=== PATIENT | male | born 1990 | race Caucasian/White ===

== ENCOUNTER 2018-09-03 06:58 | Emergency (ER) | payer OTHER, SELFPAY ==
[2018-09-03 07:03] VITALS: BP 126/72; PULSE 72; RESP 18; TEMP 36.8; O2SAT 97; BMI 26.6
--- NOTE | 2018-09-03 07:14 | DI.RAD.S_ITS ---
PROCEDURE: XR SHOULDER RT MIN 2V INDICATIONS: Shoulder pain x 2 weeks, no known injury TECHNIQUE: 3 views of the shoulder were acquired. COMPARISON: None. FINDINGS: Bones: No fractures or dislocations. No suspicious bony lesions. Visualized ribs appear intact. Soft tissues: No suspicious soft tissue calcifications. IMPRESSION: No acute fracture or dislocation of the right shoulder. No radiographic findings to explain patient's reported right shoulder pain. Dictated by: Noah Bartholomew M.D. on 09/03/2018 at 10:16 Approved by: Noah Bartholomew M.D. on 09/03/2018 at 10:17
--- NOTE | 2018-09-03 07:31 | ED.EXTPRO ---
HPI - Extremity Problem General Chief complaint: Extremity Problem,Nontraumatic Stated complaint: pain in rt shoulder, limited restriction Time Seen by Provider: 09/03/18 07:22 Source: patient Mode of arrival: ambulatory Limitations: no limitations History of Present Illness HPI Narrative: This is a 28-year-old who comes the emergency of right shoulder pain. Patient states he has had symptoms for 2 or 3 weeks patient states that he noticed when was trying to do pushups that feels a little weaker on that side. He tries to fully hold his arm extended outwards and internally and externally rotate it feels like it wants to pop out place. Patient states that he does not any if he is sitting. Suspects it might be related to how he sleeps sort of sleeps on shoulder with stopper maker. Patient weakness lower arm, numbness, tingling or difficulty with conduit bender or movement patient states he has symptoms has not been taking any medication pain denies any medical history than he sometimes notes that he is pre hypertensive on the blood pressure machines the store. No prior surgeries. To medications. Patient does work as a security and compliance project manager he states that he has had scalpel in the past but does not remember having any injury to the shoulder itself. Related Data Home Medications Medication Instructions Recorded Confirmed No Known Home Medications 09/03/18 09/03/18 Allergies Allergy/AdvReac Type Severity Reaction Status Date / Time No Known Drug Allergies Allergy Verified 09/03/18 07:15 Review of Systems Review of Systems ROS Unobtainable: All systems reviewed & are unremarkable except as noted in HPI and below Constitutional Denies weakness ENT Ears, Nose, Mouth, and Throat: Denies neck pain Cardiovascular Denies chest pain and Denies dyspnea Respiratory Denies dyspnea Musculoskeletal Reports as per HPI, Denies back pain, Denies myalgias, Denies deformity, Reports arthralgias (right shoulder), Denies joint swelling, Reports limited range of motion, Denies muscle weakness, Denies neck pain, Denies numbness, Denies radiating pain into limb, Denies stiffness and Denies tingling Integumentary/Breasts Denies rash and Denies unusual bruising Neurologic Denies numbness, Denies sensory deficit, Denies tingling, Denies paresthesias and Denies weakness PFSH Medical History Bipolar disorder (Acute) PTSD (post-traumatic stress disorder) (Acute) Exam Narrative Exam Narrative: GENERAL: Alert and oriented x three, HEENT: Head normocephalic, atraumatic, EOMI, pupils reactive, face symmetric, moist mucous membranes NECK: Supple, full range of motion CARDIOVASCULAR: Regular rate and rhythm without murmurs, rubs or gallops. RESPIRATORY: Breath sounds equal bilaterally, no wheezes rales or rhonchi. ABDOMEN: Soft, nontender. Normoactive bowel sounds all 4 quadrants. No guarding or rebound, rigidity, no mass EXTREMITIES: Normal range of motion of right shoulder although less actively in comparison to left, non-tender to palpation, no tenderness over biceps tendon, No swelling, erythema, or warmth, no clubbing or edema. Neurovascularly intact. 2+ pulses bilateral upper extremities, 5/5 muscle strength of upper extremities, normal sensation. NEUROLOGICAL: Cranial nerves II through XII grossly intact. Moving all extremities SKIN: Warm, dry, no petechiae, no rashes or lesions. Initial Vital Signs Initial Vital Signs: Vital Signs Temperature 98.3 F 09/03/18 07:03 Pulse Rate 72 09/03/18 07:03 Respiratory Rate 18 09/03/18 07:03 Blood Pressure 126/72 09/03/18 07:03 Pulse Oximetry 97 09/03/18 07:03 Course Orders Ordered: ED Orders 09/03/18 07:14 XR shoulder RT min 2V Stat Vital Signs - 8 hr 09/03/18 07:03 Temperature 98.3 F Pulse Rate 72 Respiratory Rate 18 Blood Pressure 126/72 Pulse Oximetry 97 [facility] - Extremity (Nontraumatic) Imaging Data Right shoulder xray: Attestation: I personally reviewed and interpreted this imaging study as follows: My impression: no fx, normal alignment. MDM Narrative Medical decision making narrative: Discussed with the patient he does not have any bony changes, discussed possibly rotator cuff issues with feeling of weakness but pain is more posterior shoulder so makes it less likely, no signs/symptoms of neurologic or nerve involvement, biceps tendon non-tender with testing. [facility], possibly for PT vs referral to orthopedic surgery. Xray given to patient on disk. Discharge Plan Departure Patient Disposition: Home Clinical Impression: Pain in right shoulder Qualifiers: Chronicity: acute Qualified Code(s): M25.511 - Pain in right shoulder Instructions: DI for Shoulder Pain Activity Restrictions/Additional Instructions: Follow [facility] in the next 7-10 days if symptoms are not improving. Take the disk of your xray images with your appointment. Continue ibuprofen up to 600mg every 6 hours as needed. You may take up to 2400mg in a 24 hour period. You may take tylenol up to 1000mg every 8 hours as needed. Use ice to the affected area up to 20 minutes hourly. Return to the ER for loss of sensation, new weakness, inability to conduit bender or hold objects, if you are unable to lift or move your arm or other new or concerning symptoms. Prescriptions: No Action No Known Home Medications RF: 0
== END 2018-09-03 08:00 | disposition home or self-care (01) ==
PROVIDERS: Emergency Provider Emergency Medicine
DX: M25.511 Pain in right shoulder (principal)
CPT/HCPCS: 73030; 99282; 99283

== ENCOUNTER 2019-02-21 16:26 | Emergency (ER) | payer OTHER, SELFPAY ==
--- NOTE | 2019-02-21 16:31 | DI.RAD.S_ITS ---
PROCEDURE: XR SHOULDER RT MIN 2V INDICATIONS: fall with pain, question dislocation TECHNIQUE: 3 views of the shoulder were acquired. COMPARISON: [facility], CR, XR SHOULDER RT MIN 2V, 09/03/2018, 7:22. FINDINGS: Bones: No fractures or dislocations. No suspicious bony lesions. Visualized ribs appear intact. Soft tissues: No suspicious soft tissue calcifications. IMPRESSION: No fracture. No osseous lesion. If symptoms and/or clinical suspicion for pathology persists, further assessment with repeat radiographs (7-10 days) or advanced imaging (e.g. CT, MRI or bone scan) may be helpful. Dictated by: Salud Franks MD, PhD on 02/21/2019 at 17:01 Approved by: Salud Franks MD, PhD on 02/21/2019 at 17:02
[2019-02-21 16:36] VITALS: BP 122/81; PULSE 100; RESP 18; TEMP 36.7; O2SAT 97
--- NOTE | 2019-02-21 16:39 | ED.UPPEXIN ---
HPI - Extremity Injury (Upper) General Chief Complaint: Extremity Injury, Upper Stated Complaint: RIGHT ARM IS DISLOCATED Time Seen by Provider: 02/21/19 16:27 Source: patient and family Mode of arrival: ambulatory Limitations: no limitations History of Present Illness HPI narrative: 28-year-old former smoker with benign medical history presents with multiple family members, right upper extremity in a sling and a chief complaint of a shoulder dislocation. He states that last night while practicing martial arts moves by himself he lifted both arms up and away and felt a pop in his shoulder and he developed significant pain and decreased range of motion. She denies any numbness tingling or weakness. He does have a history of shoulder problems on this side. He denies any high speed or high velocity traumas. MD complaint: injury to: right Other injuries: none Handedness: right Place: home Severity: moderate Relieving factors: rest Related Data Home Medications Medication Instructions Recorded Confirmed No Known Home Medications 09/03/18 09/03/18 Allergies Allergy/AdvReac Type Severity Reaction Status Date / Time No Known Drug Allergies Allergy Verified 09/03/18 07:15 Review of Systems Constitutional Denies chills, Denies fever(s), Denies lethargy and Denies weakness Eyes Denies change in vision, Denies eye discharge, Denies irritation and Denies loss of vision ENT Ears, Nose, Mouth, and Throat: Denies change in voice, Denies neck pain and Denies sore throat Cardiovascular Denies chest pain, Denies irregular heart rhythm, Denies lightheadedness, Denies palpitations, Denies dyspnea, Denies dyspnea on exertion and Denies orthopnea Respiratory Denies cough, Denies dyspnea, Denies dyspnea on exertion and Denies wheezing Gastrointestinal Gastrointestinal: Denies abdominal pain, Denies change in bowel habits, Denies diarrhea, Denies nausea and Denies vomiting Genitourinary Denies hematuria, Denies flank pain, Denies urinary incontinence and Denies urinary urgency Musculoskeletal Reports limited range of motion and Denies neck pain Integumentary/Breasts Denies pruritus, Denies erythema, Denies rash and Denies wounds Neurologic Denies confusion, Denies loss of vision and Denies weakness Psychiatric Denies anxiety, Denies confusion, Denies depression, Denies homicidal ideation and Denies suicidal ideation Endocrine Denies palpitations Hematologic/Lymphatic Denies easy bruising Allergic/Immunologic Denies wheezing [facility] Medical History Bipolar disorder (Acute) PTSD (post-traumatic stress disorder) (Acute) Social History Smoking Status: Never smoker Social History Smoking Status: Never smoker Exam Narrative Exam Narrative: GEN: AOx3 and in mild distress, 28 year old male appears stated age EYES: Pupils are equal, round, and reactive to light and accommodation. Extraoccular muscles are intact bilaterally. There is no subconjunctival hemorrhage or exudate. CHEST: Lungs are clear to auscultation bilaterally and free of wheezes, rales, or rhonchi. Heart rate is regular rhythm, there are no murmurs, clicks, rubs, or gallops. There is no chest wall tenderness. ABD: Abdomen is soft and nontender. There is no guarding or rebound. Bowel sounds are normal in all 4 quadrants. There is no mass or organomegaly. EXT: Full painless ROM of all extremities with no loss of sensation or strength. SKIN: Warm, pink, and dry. No erythema or rash Initial Vital Signs Initial Vital Signs: Vital Signs Temperature 98.0 F 02/21/19 16:36 Pulse Rate 100 H 02/21/19 16:36 Respiratory Rate 18 02/21/19 16:36 Blood Pressure 122/81 02/21/19 16:36 Pulse Oximetry 97 02/21/19 16:36 Procedures Orthopedic Splinting/Casting Injury #1: Side: right Upper Extremity Injury Location: shoulder Upper Extremity Immobilizer: sling/shoulder immobilizer Post splinting neuro exam: intact Post splinting vascular exam: intact Placed by: Nursing Course Orders Ordered: ED Orders 02/21/19 16:31 XR shoulder RT min 2V Stat Vital Signs - 8 hr 02/21/19 16:36 Temperature 98.0 F Pulse Rate 100 H Respiratory Rate 18 Blood Pressure 122/81 Pulse Oximetry 97 MDM - Extremity Injury (Upper) Imaging Data Shoulder Xray: Radiologist's impression: [address] [address] XRay Report Signed Patient: Dimitry Soliman Cisco#: [id number] : 1990Acct:[id number] Age/Sex: 28 / MDate of Service: 02/21/19 Loc: ED Accession Number: [id number] Procedure: XR shoulder RT min 2V Ordering Provider: Dallas Joseph D.O. PROCEDURE: XR SHOULDER RT MIN 2V INDICATIONS: fall with pain, question dislocation TECHNIQUE: 3 views of the shoulder were acquired. COMPARISON: [facility], CR, XR SHOULDER RT MIN 2V, 09/03/2018, 7:22. FINDINGS: Bones: No fractures or dislocations. No suspicious bony lesions. Visualized ribs appear intact. Soft tissues: No suspicious soft tissue calcifications. IMPRESSION: No fracture. No osseous lesion. If symptoms and/or clinical suspicion for pathology persists, further assessment with repeat radiographs (7-10 days) or advanced imaging (e.g. CT, MRI or bone scan) may be helpful. Dictated by: Salud Franks MD, PhD on 02/21/2019 at 17:01 Approved by: Salud Franks MD, PhD on 02/21/2019 at 17:02 Discharge Plan Departure Patient Disposition: Home Clinical Impression: Right shoulder strain Qualifiers: Encounter type: initial encounter Qualified Code(s): S46.911A - Strain of unspecified muscle, fascia and tendon at shoulder and upper arm level, right arm, initial encounter Discharge Date/Time: 02/21/19 17:06 Interventions: ED Discharge Assessment Last Done: 02/21/19 17:05 Instructions: DI for Shoulder Sprain Activity Restrictions/Additional Instructions: *You have been diagnosed with [ acute right shoulder strain ] *What to do: *Take medications as directed: motrin for pain and swelling *Follow up with your primary care provider in 2-3 days, call for an appointment. Let them know you were seen in the Emergency Department and that we ask that you be seen in follow up *Return to ER if you should have any new, worsening or concerning symptoms Prescriptions: No Action No Known Home Medications RF: 0
== END 2019-02-21 17:06 | disposition home or self-care (01) ==
PROVIDERS: Emergency Provider Emergency Medicine
DX: S46.911A Strain of unspecified muscle, fascia and tendon at shoulder and upper arm level, right arm, initial encounter (principal); Y93.75 Activity, martial arts
CPT/HCPCS: 73030; 99282; 99283

== ENCOUNTER 2019-06-19 12:56 | Emergency (ER) | payer OTHER, SELFPAY ==
[2019-06-19 13:04] VITALS: BP 126/69; PULSE 84; RESP 16; TEMP 36.9; O2SAT 99
[2019-06-19] MEDS: CYCLOBENZAPRINE 10 MG TABLET PO (13:38)
[2019-06-19] MEDS: LIDOCAINE PATCH 1 EACH ADH..PATCH TOP (13:38)
--- NOTE | 2019-06-19 15:39 | ED_ITS ---
HPI - Neck Pain/Injury <ADAM Rea - Last Filed: 06/19/19 15:42> General Chief Complaint: Neck Pain/Injury Stated Complaint: Can't Move Head Time Seen by Provider: 06/19/19 13:16 Source: patient Mode of arrival: Ambulatory Limitations: no limitations History of Present Illness HPI Narrative: The patient is a 28-year-old male current some day smoker who denies pertinent medical history presents with a chief complaint of neck muscle spasm. He states he brought his girlfriend who is 29 weeks to the center to be checked today, with sitting there and felt all muscles in his neck tight not. Denies any trauma. He states he has had half a glass of green tea this morning and has not had any water to drink. He denies any fevers nausea vomiting or diarrhea. He took 400 mg of ibuprofen 1 hour prior to arrival. He denies any numbness tingling, incontinence bowel incontinence water saddle anesthesia. Related Data Previous Rx's Medication Instructions Recorded cyclobenzaprine 10 mg PO TID PRN #20 tab 06/19/19 Allergies Allergy/AdvReac Type Severity Reaction Status Date / Time No Known Drug Allergies Allergy Verified 09/03/18 07:15 Review of Systems <ADAM Rea - Last Filed: 06/19/19 15:42> Review of Systems Narrative: GENERAL: Denies chills, fatigue, malaise, fever, sweats. HEENT: Denies sinus pain, ear pain, sore throat, difficulty swallowing, dizziness. RESPIRATORY: Denies dyspnea, cough, wheezing, hemoptysis, sputum. CARDIOVASCULAR: Denies chest pain, palpitations, orthopnea, edema, GASTROINTESTINAL: Denies nausea, vomiting, abdominal pain, diarrhea, constipation, melena. : Denies dysuria, frequency, incontinence, hematuria, urinary retention. MUSCULOSKELETAL: See HPI SKIN: Denies rash, skin lesions, or other NEUROLOGIC: Denies weakness, headache, numbness, change in speech, confusion, seizures, incoordination. PSYCHIATRIC: No concerning psychosocial issues. 12 point review of systems is negative except for those stated above Patient History <ADAM Rea - Last Filed: 06/19/19 15:42> Medical History Bipolar disorder (Acute) PTSD (post-traumatic stress disorder) (Acute) Social History Smoking Status: Current some day smoker tobacco type: cigarettes alcohol intake frequency: 0-2 drinks per day Substance Use Type: does not use Exam <ADAM Rea - Last Filed: 06/19/19 15:42> Narrative Exam Narrative: GENERAL: This is a well-nourished, well-developed patient, in no acute distress HEAD: Atraumatic. Normocephalic. No temporal or scalp tenderness. EYES: Pupils equal round and reactive. Extraocular motions intact. No scleral icterus. No injection or drainage. ENT: Nose without bleeding, purulent drainage or septal hematoma. Throat without erythema, tonsillar hypertrophy or exudate. Uvula midline. Airway patent. NECK: Trachea midline. No JVD or lymphadenopathy. Supple, nontender, no meningeal signs. CARDIOVASCULAR: Regular rate and rhythm without murmurs, gallops, or rubs. RESPIRATORY: Clear to auscultation. Breath sounds equal bilaterally. No wheezes, rales, or rhonchi. No cough. No increased respiratory effort. No accessory muscle use. GASTROINTESTINAL: Abdomen soft, non-tender, nondistended. No hepato- splenomegaly, or palpable masses. No guarding. EXTREMITIES: No clubbing, cyanosis, or edema. No joint tenderness, effusion, or edema noted. BACK: Nontender without deformity or crepitance. No flank tenderness. No pain to palpation of midline C-spine. Pain to palpation bilateral paraspinal muscles of neck. NEURO: AOx3. SKIN: No rash or erythema. Initial Vital Signs Initial Vital Signs: Vital Signs Temperature 98.4 F 06/19/19 13:04 Pulse Rate 84 06/19/19 13:04 Respiratory Rate 16 06/19/19 13:04 Blood Pressure 126/69 06/19/19 13:04 Pulse Oximetry 99 06/19/19 13:04 <Justa Sharp MD - Last Filed: 06/19/19 15:53> Initial Vital Signs Initial Vital Signs: Vital Signs Temperature 98.4 F 06/19/19 13:04 Pulse Rate 84 06/19/19 13:04 Respiratory Rate 16 06/19/19 13:04 Blood Pressure 126/69 06/19/19 13:04 Pulse Oximetry 99 06/19/19 13:04 Scores <ADAM Rea - Last Filed: 06/19/19 15:42> Nexus Score for C-Spine Focal Neurologic deficit present: No Midline spinal tenderness present: No Altered level of conciousness present: No Intoxication present: No Distracting Injury Present: No Nexus Criteria for C-spine: 0 Course <ADAM Rea - Last Filed: 06/19/19 15:42> Orders Ordered: Discontinued Medications Cyclobenzaprine HCl (Flexeril) 10 mg PO NOW ONE Stop: 06/19/19 13:29 Last Admin: 06/19/19 13:38 Dose: 10 mg Documented by: PIPO Lidocaine (Lidoderm) 1 each TOP NOW ONE Stop: 06/19/19 13:29 Last Admin: 06/19/19 13:38 Dose: 1 each Documented by: PIPO Vital Signs Vital signs: Vital Signs - 8 hr 06/19/19 13:04 Temperature 98.4 F Pulse Rate 84 Respiratory Rate 16 Blood Pressure 126/69 Pulse Oximetry 99 <Justa Sharp MD - Last Filed: 06/19/19 15:53> Orders Ordered: Discontinued Medications Cyclobenzaprine HCl (Flexeril) 10 mg PO NOW ONE Stop: 06/19/19 13:29 Last Admin: 06/19/19 13:38 Dose: 10 mg Documented by: PIPO Lidocaine (Lidoderm) 1 each TOP NOW ONE Stop: 06/19/19 13:29 Last Admin: 06/19/19 13:38 Dose: 1 each Documented by: PIPO Vital Signs Vital signs: Vital Signs - 8 hr 06/19/19 13:04 Temperature 98.4 F Pulse Rate 84 Respiratory Rate 16 Blood Pressure 126/69 Pulse Oximetry 99 MDM - Neck Pain/Injury <ADAM Rea - Last Filed: 06/19/19 15:42> MDM Narrative Medical decision making narrative: The patient is a 28-year-old male who presents with a chief complaint of neck pain and spasm after he brought his girlfriend to the Center to be evaluated at 29 weeks . He states that he has not had any water today and he concerned he is dehydrated. He denies any systemic signs of illness, any acute neurological symptoms. He denies any incontinence of bowel, incontinence of bladder saddle anesthesia. He responded very well in the emergency department to lidocaine patch as well as cyclobenzaprine. I encouraged him to follow up with primary care provider in the next few days. Discussed at length coming back to the emergency department for any acute concerns. Patient has no questions or concerns upon discharge and states understanding of return precautions as well as follow-up care. Discharge Plan Departure Patient Disposition: Home Clinical Impression: Muscle spasm Discharge Date/Time: 06/19/19 14:18 Instructions: DI for Neck Pain, DI for Muscle Spasm Activity Restrictions/Additional Instructions: Please push fluids. I sent a prescription for a muscle relaxer to [facility] in [place]. Be aware this can be sedating. Do not take and drive. Please follow up with primary care provider. Please use [id number] medications as needed and able for comfort. Please come back to the emergency department for any acute concerns. Prescriptions: New cyclobenzaprine 10 mg tablet 10 mg PO TID PRN (Reason: muscle spasm) Qty: 20 RF: 0 Referrals: [facility] [Outside]
== END 2019-06-19 14:18 | disposition home or self-care (01) ==
PROVIDERS: Emergency Provider Nurse Practitioner Family
DX: M62.838 Other muscle spasm (principal)
CPT/HCPCS: 99282; 99283

== ENCOUNTER 2019-06-25 05:46 | Emergency (ER) | payer OTHER, SELFPAY ==
--- NOTE | 2019-06-25 05:46 | ED_ITS ---
HPI - Abdominal Pain General Chief Complaint: Abdominal Pain Stated Complaint: Abd Pain Time Seen by Provider: 06/25/19 05:46 Source: patient and EMS Mode of arrival: EMS Limitations: no limitations History of Present Illness HPI narrative: 29-year-old male nonsmoker with noncontributory medical history presents by EMS for evaluation of some episodic left-sided abdominal pain and a bulge around his belly button. He denies any significant pain but states when present is seems to be made worse by sneezing, coughing or standing. He denies nausea, vomiting or diarrhea. He states the pain around his umbilicus started with a forceful episode of sneezing coughing and he felt a pop and now has a bulge, he looked it up on the Internet and it states it is an umbilical hernia. He has been passing gas without difficulty. MD complaint: abdominal pain Onset (ago): week(s) Pain Consistency: intermittent Location: diffuse Severity: moderate Quality: cramping and aching Radiation: none Relieving factors: nothing Exacerbating factors: nothing Associated symptoms: denies other symptoms Related Data Previous Rx's Medication Instructions Recorded cyclobenzaprine 10 mg PO TID PRN #20 tab 06/19/19 Allergies Allergy/AdvReac Type Severity Reaction Status Date / Time No Known Drug Allergies Allergy Verified 09/03/18 07:15 Review of Systems Constitutional Constitutional: Denies chills, Denies fatigue, Denies fever(s), Denies frequent falls, Denies lethargy and Denies weakness Eyes Eyes: Denies change in vision, Denies eye discharge, Denies irritation and Denies loss of vision ENT Ears, Nose, Mouth, and Throat: Denies change in voice, Denies dizziness, Denies neck pain, Denies sore throat and Denies throat swelling Cardiovascular Cardiovascular: Denies chest pain, Denies irregular heart rhythm, Denies ligh theadedness, Denies palpitations, Denies dyspnea, Denies dyspnea on exertion and Denies orthopnea Respiratory Respiratory: Denies cough, Denies dyspnea, Denies dyspnea on exertion and Denies wheezing Gastrointestinal Gastrointestinal: Reports abdominal pain, Denies change in bowel habits, Denies diarrhea, Denies nausea and Denies vomiting Genitourinary Genitourinary: Denies hematuria, Denies flank pain, Denies urinary incontinence and Denies urinary urgency Musculoskeletal Musculoskeletal: Denies back pain, Denies muscle weakness, Denies neck pain, Denies numbness and Denies tingling Integumentary/Breasts Skin/Breast: Denies pruritus, Denies erythema, Denies rash and Denies wounds Neurologic Neurologic: Denies behavioral changes, Denies confusion, Denies dizziness, Denies frequent falls, Denies loss of vision, Denies numbness, Denies tingling and Denies weakness Psychiatric Psychiatric: Denies anxiety, Denies behavioral changes, Denies confusion, Denies depression, Denies homicidal ideation and Denies suicidal ideation Endocrine Endocrine: Denies fatigue, Denies flushing and Denies palpitations Hematologic/Lymphatic Hematologic/Lymphatic: Denies easy bruising Allergic/Immunologic Allergic/Immunologic: Denies urticaria, Denies throat swelling and Denies wheezing Patient History Medical History Bipolar disorder (Acute) PTSD (post-traumatic stress disorder) (Acute) Social History Smoking Status: Current some day smoker tobacco type: cigarettes alcohol intake frequency: 0-2 drinks per day Substance Use Type: does not use Exam Narrative Exam Narrative: GENERAL: [29] year old patient appears stated age. Well- nourished, well-developed patient, in mild distress. HEAD: Atraumatic. Normocephalic. EYES: Pupils equal round and reactive. Extraocular motions intact. No scleral icterus. No injection or drainage. ENT: Nose without bleeding, purulent drainage. Throat without erythema, tonsillar hypertrophy or exudate. Airway patent. NECK: Trachea midline. Non tender CARDIOVASCULAR: Regular rate and rhythm without murmurs, gallops, or rubs. RESPIRATORY: Clear to auscultation. Breath sounds equal bilaterally. No wheezes, rales, or rhonchi. GASTROINTESTINAL: Abdomen soft, non-tender, nondistended. Small umbilical hernia easily reducible : patient examined while standing. No inguinal hernia or testicular pain/swelling/erythema EXTREMITIES: No edema or joint tenderness. BACK: Nontender without deformity or crepitance. No flank tenderness. NEURO: AOx3. SKIN: No rash or erythema of visible areas Initial Vital Signs Initial Vital Signs: Vital Signs Temperature 98.4 F 06/25/19 06:00 Pulse Rate 88 06/25/19 06:00 Respiratory Rate 14 06/25/19 06:00 Blood Pressure 145/85 H 06/25/19 06:00 Pulse Oximetry 99 06/25/19 06:00 Course Orders Ordered: ED Orders 06/25/19 05:53 XR acute abdomen series Stat 06/25/19 06:08 Complete Blood Count AUTO DIFF Stat Comprehensive Metabolic Panel Stat Vital Signs Vital signs: Vital Signs - 8 hr 06/25/19 06:00 Temperature 98.4 F Pulse Rate 88 Respiratory Rate 14 Blood Pressure 145/85 H Pulse Oximetry 99 MDM - Abdominal Pain Lab Data Result diagrams: 06/25/19 06:08 06/25/19 06:08 Labs: Lab Results 06/25/19 06/25/19 Range/Units 06:08 06:08 WBC 4.5 (4.5-11.0) X10^3/uL RBC 5.33 (4.5-5.9) X10^6/uL Hgb 15.9 (13.5-17.5) g/dL Hct 46.8 (41-53) % MCV 87.8 (80-100) fL MCH 29.8 (26-34) PG MCHC 34.0 (30-36) % RDW 13.6 (11.6-14.8) % Plt Count 226 (150-400) X10^3/uL Neut % (Auto) 50.8 (50-75) % Lymph % (Auto) 33.8 (25-40) % [place] % (Auto) 12.8 (3-14) % Eos % (Auto) 2.1 (2-4) % Baso % (Auto) 0.5 (0-2) % Neut # (Auto) 2300 (4489-1040) /uL Lymph # (Auto) 1500 (6857-4889) /uL [place] # (Auto) 600 (0-900) /uL Eos # (Auto) 100 (0-450) /uL Baso # (Auto) 0 (0-100) /uL Sodium 139 (137-145) mmol/L Potassium 4.0 (3.4-5.1) mmol/L Chloride 103 (98-107) mmol/L Carbon Dioxide 25 (22-32) mmol/L BUN 16 (9-20) mg/dL Creatinine 1.00 (0.66-1.25) mg/dL Estimated GFR > 60.0 (>60) mL/min BUN/Creatinine Ratio 16.0 (6-22) Glucose 110 H (70-100) mg/dL Calcium 10.2 (8.4-10.2) mg/dL Total Bilirubin 1.4 H (0.2-1.3) mg/dL AST 27 (17-59) IU/L ALT 28 (<50) IU/L Alkaline Phosphatase 64 (38-126) U/L Total Protein 7.8 (6.3-8.2) g/dL Albumin 4.7 (3.5-5.0) g/dL Globulin 3.1 (1.7-4.1) g/dL Albumin/Globulin Ratio 1.5 (1.0-2.8) Discharge Plan Departure Patient Disposition: Home Clinical Impression: Hernia, umbilical Qualifiers: Obstruction and gangrene presence: without obstruction or gangrene Qualified Code(s): K42.9 - Umbilical hernia without obstruction or gangrene Abdominal pain Qualifiers: Abdominal location: generalized Qualified Code(s): R10.84 - Generalized abdominal pain Clinical Impression: (Ruled Out): Gastroenteritis Activity Restrictions/Additional Instructions: *You have been diagnosed with [reducible umbilical hernia. Please avoid lifting heavy objects. Stay well hydrated and avoid constipating foods such as dairy products. Please focus on foods high in fiber.] *What to do: *Take medications as directed *Follow up with your primary care provider in 2-3 days, call for an appointment. Let them know you were seen in the Emergency Department and that we ask that you be seen in follow up *Return to ER if you should have any new, worsening or concerning symptoms, such as [increasing pain, a hernia which does not reduce (pushed back in)] Prescriptions: No Action cyclobenzaprine 10 mg tablet 10 mg PO TID PRN (Reason: muscle spasm) Qty: 20 RF: 0 Referrals: Joel Duckworth MD [Physician] -
--- NOTE | 2019-06-25 05:53 | DI.RAD.S_ITS ---
PROCEDURE: XR ACUTE ABDOMEN SERIES INDICATIONS: Abdominal pain TECHNIQUE: One view chest and two views of the abdomen were acquired. COMPARISON: None. FINDINGS: Surgical changes and devices: None. Chest: Lungs are clear. Heart size is normal. No pleural effusions. No pneumoperitoneum. Abdomen: Bowel gas pattern is normal. No suspicious calcifications. Visualized solid organ contours appear normal. Bones: No suspicious bony lesions. IMPRESSION: 1. No acute cardiopulmonary findings. No acute intra-abdominal findings. Dictated by: Kelli Gutierres M.D. on 06/25/2019 at 7:05 Approved by: Kelli Gutierres M.D. on 06/25/2019 at 7:06
[2019-06-25 06:00] VITALS: BP 145/85; PULSE 88; RESP 14; TEMP 36.9; O2SAT 99; BMI 27.8
[2019-06-25 06:15] LABS: Add Manual Diff / Slide Review NO; Basophils Absolute Auto 0 /uL (0-100); Basophils Percent Auto 0.5 % (0-2); Eosinophils Absolute Auto 100 /uL (0-450); Eosinophils Percent Auto 2.1 % (2-4); Hematocrit 46.8 % (41-53); Hemoglobin 15.9 g/dL (13.5-17.5); Lymphocytes Absolute Auto 1500 /uL (1100-4500); Lymphocytes Percent Auto 33.8 % (25-40); Mean Corpuscular Hemoglobin 29.8 PG (26-34); Mean Corpuscular Volume 87.8 fL (80-100); Monocytes Absolute Auto 600 /uL (0-900); Monocytes Percent Auto 12.8 % (3-14); Neutrophils Absolute Auto 2300 /uL (1500-7000); Neutrophils Percent Auto 50.8 % (50-75); Platelet Count 226 X10^3/uL (150-400); Red Blood Cell Count 5.33 X10^6/uL (4.5-5.9); Red Cell Distribution Width 13.6 % (11.6-14.8); White Blood Cell Count 4.5 X10^3/uL (4.5-11.0)
[2019-06-25 06:27] LABS: Alanine Aminotransferase 28 IU/L (<50); Albumin 4.7 g/dL (3.5-5.0); Albumin Globulin Ratio 1.5 (1.0-2.8); Alkaline Phosphatase 64 U/L (38-126); Aspartate Aminotransferase 27 IU/L (17-59); Bilirubin Total 1.4 mg/dL (0.2-1.3); Blood Urea Nitrogen 16 mg/dL (9-20); Calcium 10.2 mg/dL (8.4-10.2); Carbon Dioxide 25 mmol/L (22-32); Chloride 103 mmol/L (98-107); Estimated Glomerular Filt Rate > 60.0 mL/min (>60); Globulin 3.1 g/dL (1.7-4.1); Glucose 110 mg/dL (70-100); HEMOLYSIS < 15 (0-50); Sodium 139 mmol/L (137-145); Total Protein 7.8 g/dL (6.3-8.2)
[2019-06-25 07:18] VITALS: BP 133/80; PULSE 90; RESP 14; O2SAT 96
== END 2019-06-25 07:27 | disposition home or self-care (01) ==
PROVIDERS: Emergency Provider Emergency Medicine
DX: K42.9 Umbilical hernia without obstruction or gangrene (principal)
CPT/HCPCS: 74022; 80053; 85025; 99282; 99284